=== PATIENT | female | born 1975 | race Caucasian/White ===

== ENCOUNTER 2022-04-30 19:14 | Outpatient (REF) | payer OTHER, SELFPAY ==
--- NOTE | 2022-04-30 13:15 | PAPFT_PTH ---
PATIENT: Indy Gilliam LOC: [facility] U#:[id number] AGE/SX: 46/F ROOM: RE04/30/[address]: DAWNA Castorena : 1975 BED: DIS: 04/30/2022 SPEC #: [id number] RECD: 05/01/22 12:48 STATUS: MIRTHA REYanni #: [id number] KIRA: 04/30/22 13:[address]: Rebeka Pineda DEPT: [facility] Cytology RECD BY: Vandana Little Tissues: 1 - CX/ENDOCX FOR PAP SMEARS Procedures: PAP THIN PREP/UVM Screening HPV DNA PROBE Comments: [id number]
== END 2022-04-30 19:15 | disposition home or self-care (01) ==
LOC: LBN 19:14
PROVIDERS: PCP Nurse Practitioner Family; Visit Provider Nurse Practitioner Family
DX: Z12.4 Encounter for screening for malignant neoplasm of cervix (principal); Z11.51 Encounter for screening for human papillomavirus (HPV)
CPT/HCPCS: 88142; 87624

== ENCOUNTER 2023-05-31 18:34 | Outpatient (REF) | payer OTHER, SELFPAY ==
--- NOTE | 2023-05-31 14:00 | PAPFT_PTH ---
PATIENT: Indy Gilliam LOC: [facility] U#:[id number] AGE/SX: 48/F ROOM: RE05/31/[address]: DAWNA Castorena : 1975 BED: DIS: 05/31/2023 SPEC #: [id number] RECD: 06/01/23 12:54 STATUS: MIRTHA REYanni #: [id number] KIRA: 05/31/23 14:[address]: Rebeka Pineda DEPT: [facility] Cytology RECD BY: Vandana Little Tissues: 1 - CX/ENDOCX FOR PAP SMEARS Procedures: PAP THIN PREP/UVM Screening HPV DNA PROBE Comments: [id number] (CHLAMYDIA/GC)
[2023-06-02 15:34] LABS: Chlamydia Result Negative (Negative); GC Result Negative (Negative)
== END 2023-05-31 18:35 | disposition home or self-care (01) ==
LOC: LBN 18:34
PROVIDERS: PCP Nurse Practitioner Family; Visit Provider Nurse Practitioner Family
DX: Z12.4 Encounter for screening for malignant neoplasm of cervix (principal); Z72.51 High risk heterosexual behavior
CPT/HCPCS: 87491; 87591; 88142; 87624

== ENCOUNTER → 2023-06-21 01:19 | Outpatient (CLI) | payer OTHER, SELFPAY ==
--- NOTE | 2023-06-21 07:45 | DI.US_ITS ---
Exam(s) US BREAST RT LIMITED MG MAMMO DIAGNOSTIC BI EXAM: MAMMO DIAGNOSTIC BI and U/S breast RT limited CLINICAL HISTORY: right breast lump, upper outer quadrant,diagnostic,n63.10. TECHNIQUE: Craniocaudal and mediolateral oblique Full Field Digital Mammography views with Computer Aided Diagnosis followed by Tomosynthesis and right breast ultrasound. COMPARISON: This is a baseline examination. FINDINGS: Mammography/Tomosynthesis: Masses/Architectural Distortion: None seen. Microcalcifictions: No suspicious pleomorphic-type are seen. Skin Thickening/Nipple Retraction: None. Limited right breast US: Echotexture: Normal appearance of the glandular tissue. Shadowing: No suspicious foci. Cyst: None. Solid lesions: None seen. Ductal dilation: None. IMPRESSION: 1. No evidence of malignancy is noted. 2. Unless there is more urgent need, follow-up screening mammography is recommended, as per [place] [employer] guidelines. 3. The findings were discussed with the patient on the date of the examination. BI-RADS Category 1 - Negative Breast Density - Category C - Heterogeneously dense Breast density Category C or D implies that the patient has dense breast tissue. Dense breast tissue can make it harder to find cancer on a mammogram. Dense breast tissue is also associated with an incr eased risk of breast cancer. This information about the result of the mammogram report was provided to the patient to raise their awareness. Use this report when you speak with the patient about their risks for breast cancer, which includes their family history. At that time, you may recommend additional screening tests (Ultrasoun d or MRI) as these tests may add significant information. A negative radiographic report should not delay biopsy if a dominant or clinically suspicious mass is present. Up to ten percent of cancers are not identified on mammography. A negative report may reinforce clinical impression. Adenosis and dense breasts may obscure an underlying neoplasm. False positive reports average 6 to 10%. Patient will receive a letter notifying them of these results.
== END ==
PROVIDERS: PCP Nurse Practitioner Family; Visit Provider Nurse Practitioner Family
DX: N63.10 Unspecified lump in the right breast, unspecified quadrant (principal); Z12.31 Encounter for screening mammogram for malignant neoplasm of breast
CPT/HCPCS: 76642; 77062; 77066; G0279

== ENCOUNTER 2024-07-07 07:07 | Outpatient (CLI) | payer OTHER, SELFPAY ==
[2024-07-07 07:48] LABS: Abs Immature Grans 0.01 10^3/uL (0.0-0.06); Absolute Basophil Count 0.04 10^3/uL (0.0-0.2); Absolute Lymphocyte Count 2.46 10^3/uL (1.2-3.4); Absolute Neutrophil Count 2.71 10^3/uL (1.2-6.7); Basophils % 0.7 %; Eosinophils % 3.3 %; HCT 42.4 % (36.0-46.0); HGB 14.9 g/dL (11.2-15.7); Immature Grans % 0.2 %; Lymphocytes % 40.9 %; MCH 31.9 pg (27.0-33.0); MCHC 35.1 % (32.0-36.0); MCV 91 fL (80-95); MPV 9.4 fL (8.0-11.0); Neutrophils % 44.9 %; Platelet Count 273 10^3/uL (130-400); RBC 4.67 10^6/uL (3.93-5.22); RDW 11.9 % (11.7-14.6); RDW-SD 39.9 fL; WBC 6.02 10^3/uL (4.4-10.8)
[2024-07-07 07:57] LABS: Hemoglobin A1C 5.4 % (<5.7)
[2024-07-07 08:08] LABS: ALT 23 U/L (14-59); AST 22 U/L (15-37); Albumin 3.9 g/dL (3.4-5.0); Alkaline Phosphatase 53 U/L (46-116); Anion Gap 8.3 mmol/L (3-11); BUN 21 mg/dL (7-18); Bilirubin, Total 0.7 mg/dL (0.2-1.0); CO2 28.7 mmol/L (21.0-32.0); CREATININE 0.9 mg/dL (0.55-1.02); Calcium 9.3 mg/dL (8.5-10.1); Calculated LDL 79 mg/dL (<100); Chloride 104 mmol/L (98-107); Cholesterol 148 mg/dL (<200); Estimated GFR 78.37 (mL/min/1.73m2); Glucose 92 mg/dL (74-106); HDL Cholesterol 57 mg/dL (>or=50); Potassium 4.1 mmol/L (3.5-5.1); Sodium 141 mmol/L (136-145); TSH (W/Ref FT4) 2.85 uIU/mL (0.36-3.74); Total Protein 7.9 g/dL (6.4-8.2); Triglyceride 61 mg/dL (<150)
[2024-07-09 09:45] LABS: HIV-1/2 Ag & Ab Screen Negative (Negative)
[2024-07-10 11:59] LABS: Hepatitis C Ab w Rflx HCV PCR Negative (Negative)
== END 2024-07-07 07:08 | disposition home or self-care (01) ==
PROVIDERS: PCP Nurse Practitioner Family; Visit Provider Nurse Practitioner Family
DX: Z11.59 Encounter for screening for other viral diseases (principal); Z00.00 Encounter for general adult medical examination without abnormal findings; Z11.4 Encounter for screening for human immunodeficiency virus [HIV]
CPT/HCPCS: 36415; 80053; 80061; 86803; 87389; 83036; 84443; 85025

== ENCOUNTER 2024-07-12 12:41 | Outpatient (REF) | payer OTHER, SELFPAY ==
--- NOTE | 2024-07-12 10:15 | PAPFT_PTH ---
PATIENT: Indy Gilliam LOC: [facility] U#:[id number] AGE/SX: 49/F ROOM: RE07/12/[address]: DAWNA Castorena : 1975 BED: DIS: 07/12/2024 SPEC #: [id number] RECD: 07/12/24 13:14 STATUS: MIRTHA REQ #: [id number] KIRA: 07/12/24 10:[address]: Rebeka Pineda DEPT: [facility] Cytology RECD BY: Vandana Little Tissues: 1 - CX/ENDOCX FOR PAP SMEARS Procedures: PAP THIN PREP/UVM Screening HPV DNA PROBE Comments: [id number] (HPV 16 & 18/45) (CHLAMYDIA/GC)
[2024-07-13 11:55] LABS: Chlamydia Result Negative (Negative); GC Result Negative (Negative)
== END 2024-07-12 12:42 | disposition home or self-care (01) ==
LOC: LBN 12:41
PROVIDERS: PCP Nurse Practitioner Family; Visit Provider Nurse Practitioner Family
DX: Z12.4 Encounter for screening for malignant neoplasm of cervix (principal); R87.618 Other abnormal cytological findings on specimens from cervix uteri
CPT/HCPCS: 87491; 87591; 88142; 87624

== ENCOUNTER 2024-08-23 01:55 | Outpatient (CLI) | payer OTHER, SELFPAY ==
--- NOTE | 2024-08-23 07:30 | DI.MAMMO_ITS ---
Exam(s) MAMMO SCREENING EXAM: MAMMO SCREENING CLINICAL HISTORY: screening,z12.39 TECHNIQUE: Bilateral full field digital CC and MLO mammographic images were obtained with 3D tomosyn thesis and utilizing computer aided detection (CAD). COMPARISON: Available for comparison. FINDINGS: Masses/Architectural Distortion: No suspicious masses or areas of architectural distortion are presen t. Microcalcifications: No suspicious pleomorphic-type are seen. Skin Thickening/Nipple Retraction: None. IMPRESSION: 1. No significant interval change with no specific features of malignancy noted. 2. Unless there is more urgent need, screening mammography is recommended, as per [place] [employer] guidelines. BI-RADS Category 1 - Negative Breast Density - Category C - The breast are heterogeneously dense, which may obscure small masses. Breast density Category C or D implies that the patient has dense breast tissue. Dense breast tissue can make it harder to find cancer on a mammogram. Dense breast tissue is also associated with an incr eased risk of breast cancer. This information about the result of the mammogram report was provided to the patient to raise their awareness. Use this report when you speak with the patient about their risks for breast cancer, which includes their family history. At that time, you may recommend additional screening tests (Ultrasoun d or MRI) as these tests may add significant information. A negative radiographic report should not delay biopsy if a dominant or clinically suspicious mass is present. Up to ten percent of cancers are not identified on mammography. A negative report may reinforce clinical impression. Adenosis and dense breasts may obscure an underlying neoplasm. False positive reports average 6 to 10%. Patient will receive a letter notifying them of these results.
== END 2024-08-23 02:15 ==
LOC: DI 01:55
PROVIDERS: PCP Nurse Practitioner Family; Visit Provider Nurse Practitioner Family
DX: Z12.31 Encounter for screening mammogram for malignant neoplasm of breast (principal); R92.333 Mammographic heterogeneous density, bilateral breasts
CPT/HCPCS: 77063; 77067

== ENCOUNTER 2024-09-19 07:42 | Day surgery (SDC) | payer OTHER, SELFPAY ==
--- NOTE | 2024-09-18 15:19 | PDOC.DSDIS_ITS ---
Date of service: 09/19/24 Discharge Plan Disposition Patient Disposition: Home Condition: Good Discharge Details Reason For Visit: Screening colonoscopy Attending Provider: Ayan Riggs Primary Care Provider: Rebeka Pineda Home Meds and New Rx's Prescriptions: Continued diphenhydramine-acetaminophen [Tylenol PM Extra Strength] 25-500 mg tablet 1 tab PO QHS PRN Tumeric Curcumin PO Magnesium Bisglycinate PO cholecalciferol (vitamin D3) 10,000 unit capsule 10,000 unit PO DAILY albuterol sulfate 90 mcg/actuation HFA aerosol inhaler 2 inh IH Q6H PRN (Reason: shortness of breath or wheezing) Qty: 18 2RF fluticasone propionate 50 mcg/actuation spray,suspension 2 spray NS DAILY PRN (Reason: allergy symptoms) Qty: 47.4 4RF Rx Instructions: 2 sprays into each nostril daily as needed for congestion hydrocortisone-acetic acid 1-2 % drops 4 drp otic (ear) TID PRN (Reason: rash) Qty: 10 0RF Rx Instructions: Saturate cotton wick with 4 drops, insert into both ear canal; add 4 drops q6hrs. Replace q24hrs clobetasol 0.05 % spray,non-aerosol 1 applic topical DAILY PRN (Reason: scalp dermatitis) Qty: 125 1RF Rx Instructions: not to exceed 26 sprays per single application calcium carbonate [Oyster Shell Calcium 500] 500 MG tablet 3 tab PO DAILY melatonin-pyridoxine (vit B6) 1 EACH tablet 2 tab PO HS PRN One Daily Complete 1 EACH tablet 1 ea PO DAILY omega-3 fatty acids-fish oil 300-1,000 mg capsule 1 cap PO DAILY Patient Comments: Critical [place] levonorgestrel-ethinyl estrad [Marlissa (28)] 0.15-0.03 mg tablet 1 tab PO DAILY Qty: 84 3RF Rx Instructions: 1 tab PO daily. No Action vitamin B complex Capsule 1 cap DAILY B12 5,000-100 mcg lozenge SUBLINGUAL Discharge Instructions Instructions: Colon polyps Additional Instructions: Indy, I hope you are comfortable through the procedure and that you make a quick recovery. Your prep was outstanding, and I could see everything fine. I did find, and removed 3 polyps today. These were all quite small, but none of them have any features that are worrisome to the naked eye. These will all be sent to the pathologist for their review. Colon polyps do come in different varieties, we use the nature of the polyp to guide the timing of future colonoscopies. If you need anything, or have any questions at all, please do not hesitate to ask at any point. Otherwise, the office will be in touch once we have the results, which may take a week or 2. 1. If tolerated, consume a soft, low fiber diet for 1-2 days. 2[address] Do not drive, drink alcohol, operate machinery, make critical decisions, or do activities that require coordination or balance for 24 hours. 3. Because air was put into your colon during the procedure, expelling air from your rectum (passing gas or farting) is normal. 4. You may not have a bowel movement for 1-3 days because of the colonoscopy prep. This is normal. 5. Go directly to the emergency room if you notice any of the following: Develop chills (warm to touch), or if you have a thermometer and your temperature is above 101 Difficulty breathing or difficultly swallowing Persistent vomiting Severe abdominal pain, other than gas cramps Severe chest pain Black, tarry stools Any bleeding ? exceeding one tablespoon 6. Call your physician if the site where your intravenous was started becomes red, swollen, painful, and warm to touch. 7. Your physician has reviewed your pre-procedure medications. Please continue to take those medications as previously ordered. You will be given specific information/education regarding any changes to your medications before leaving. Stand Alone Forms: Anesthesia Discharge InstPhong, Yvan Kirkpatrick (DSU) Activity:: Activity as Tolerated Diet:: As Tolerated Discharge Orders Discharge Orders: Discharge Order (Routine); Ordered 09/18/24 Ordered By: Ayan Riggs DS: Diagnosis Discharge Diagnosis (1) Encounter for screening colonoscopy: Status: Acute Asessment and Plan: Follow-up on polypectomy results
--- NOTE | 2024-09-18 15:20 | W.COLOREPORT ---
Date of service: 09/19/24 Time of Service: 10:14 Colonoscopy Report Date of procedure: 09/19/24 Pre-op diagnosis general: Screening colonoscopy Post-op diagnosis procedure note: other (Colon polyps) Procedure: Colonoscopy with polypectomy Surgeon: Ayan Riggs Anesthesia Type: General:No Airway Estimated blood loss (mL): 5 Pathology: other (0.25 cm flat polyp at 25 cm, 0.25 cm flat polyp at 20 cm x 2 (single specimen)) Complications: None Disposition: same day Indications: Frederick is a 49-year-old woman who had a positive Cologuard test. She needs a follow-up screening colonoscopy Prep: Miralax/Dulcolax Procedure Start Time: 09:19 Procedure End Time: 10:07 Retraction Time: 13 Findings: 0.25 cm flat polyp at 25 cm, 0.25 cm flat polyp at 20 cm x 2 (single specimen) Procedure Description: After the induction of anesthesia, and with Indy in left lateral decubitus position, I began by performing an external anorectal exam.? Perineum and skin were normal, as was the anal verge.?? Next, I performed a digital rectal exam.? I did not appreciate any abnormal findings.? Next, I advanced a colonoscope into the rectal vault.? I performed retroflexion.? This appeared normal.? Using insufflation, I then advanced the colonoscope beyond the rectal folds and into the sigmoid colon before advancing towards the cecum.? The quality of the prep was outstanding.? The colon was quite redundant, and required multiple repositioning to advance all the way over to the right side. The scope was noted to be in the cecum by identification of the ileocecal valve and appendiceal orifice.? I then began withdrawing the colonoscope using repeated irrigation as necessary for full evaluation of the colonic mucosa. Around 25 cm from the anal verge was a 0.25 cm flat polyp. Narrowband imaging was used to assist with the analysis here. This was removed with cold forcep polypectomy with minimal bleeding. Similarly, at 20 cm from the anal verge were 2 more polyps. These were also both flat, each of these was less than 0.25 cm. I removed each of these with cold forceps as well. ?Once the scope was withdrawn to the level of the rectum, great care was taken to examine portions of the rectal folds.? Finally, the scope was withdrawn and the patient was brought to the same-day surgery recovery unit as the anesthetic wore off. ?The findings and instructions were shared with the patient prior to discharge. [place] Bowel Prep [place] Bowel Prep Right Colon: 3 Left Colon: 3 Transverse Colon: 3 Total Score: 9
--- NOTE | 2024-09-18 18:46 | W.ANESPRE ---
General Info Height: 5 ft 4.5 in Weight: 73.482 kg Body Mass Index (BMI): 27.3 Surgical Procedure: Operation Date: 09/19/24 09:05 Proposed Procedure Side Surgeon jacob Riggs MD Meds Allergies and Home Medications Allergies Allergy/AdvReac Type Severity Reaction Status Date / Time Beef Containing Products Allergy Intermediate intolerance Verified 09/19/24 08:06 /diarrhea gluten Allergy Intermediate diarrhea Verified 09/19/24 08:06 Sulfa (Sulfonamide Allergy Intermediate SWELLING Verified 09/19/24 08:06 Antibiotics) Home Medication ?Medication ?Instructions ?Recorded calcium carbonate (Oyster Shell 3 tab PO DAILY 09/15/12 Calcium 500) melatonin 3 mg-pyridoxine (vitamin 2 tab PO HS PRN 09/15/12 B6) 2 mg tablet multivitamin with minerals (One 1 ea PO DAILY 09/15/12 Daily Complete tablet) Magnesium Bisglycinate PO 01/30/19 Tumeric Curcumin PO 01/30/19 cholecalciferol (vitamin D3) 250 10,000 unit PO DAILY 01/30/19 mcg (10,000 unit) capsule diphenhydramine 25 1 tab PO QHS PRN 01/30/19 mg-acetaminophen 500 mg tablet (Tylenol PM Extra Strength) omega-3 fatty acids-fish oil 300 1 cap PO DAILY 01/30/19 mg-1,000 mg capsule clobetasol 0.05 % topical spray 1 applic topical DAILY PRN scalp 04/30/22 dermatitis #125 mL Marlissa (28) 0.15 mg-0.03 mg 1 tab PO DAILY #84 tabs 02/07/24 tablet (levonorgestrel-ethinyl estrad) albuterol sulfate 90 mcg/actuation 2 inh inhalation Q6H PRN shortness 07/12/24 aerosol inhaler of breath or wheezing #18 grams fluticasone propionate 50 2 spray NS DAILY PRN allergy 07/12/24 mcg/actuation nasal symptoms #47.4 mL spray,suspension hydrocortisone-acetic acid 1 %-2 % 4 drp otic (ear) TID PRN rash #10 07/12/24 ear drops mL cyanocobalamin (B12)-cobamamide rolf sublingual 09/19/24 5,000 mcg-100 mcg sublingual lozenge (B12) vitamin B complex 1 cap DAILY 09/19/24 Current Visit Medications: Current Medications Generic Name Dose Route Start Last Admin Trade Name Freq PRN Reason Stop Dose Admin Ringer's Solution 1,000 mls @ 80 mls/hr 09/19/24 06:00 IV 09/19/24 23:59 INFUSION ERIN IV Miscellaneous Supplies 1 each 09/19/24 06:00 Iv Access IV 09/19/24 23:59 DIRECTED ERIN Ondansetron HCl 4 mg 09/18/24 15:21 Ondansetron 4 Mg/2 Ml Vial IVP 10/18/24 15:20 Q4H PRN PRN Nausea / Vomiting Sodium Chloride 0 ml 09/19/24 06:00 Normal Saline Flush 10 Ml Syr IV 09/19/24 23:59 PRN PRN Sodium Chloride 0 ml 09/19/24 06:00 Normal Saline 10 Ml Vial IJ 09/19/24 23:59 DIRECTED PRN Sterile Water 0 ml 09/19/24 06:00 Water,Injection,Sterile 10 Ml Vial IJ 09/19/24 23:59 DIRECTED PRN PFSH Active Problems Active Problems: Problem Status Onset Code Encounter for screening colonoscopy Acute Z12.11 Positive colorectal cancer screening using Cologuard test Acute R19.5 Hearing loss Chronic H91.90 Allergic rhinitis Chronic J30.9 Oral contraceptive pill surveillance Chronic Z30.41 Surgical History Surgical History S/P left knee arthroscopy (09/30/16) Loose osteochondral body excision, lateral patellofemoral retinacular release, chrondroplasty patellofemoral joint, lysis of adhesions in suprapatellar pouch, contralateral meniscectomy. [facility] History of removal of cyst (~1996) Benign cyst removed from neck Tobacco Smoking/Tobacco Use Status: Never Passive smoking exposure: No Alcohol Alcohol Intake: never Substance Use Substance use: Never Substance use type: does not use Prental History History 3 Para 3 Hx # Term Pregnancies Multiple births Hx # Pregnancies Ectopic pregnancies AB induced Hx Number of Living Children 3 AB spontaneous Vital Signs and Lab Results Vital Signs Most Recent Vital Signs in EMR: Temp Pulse Resp BP Pulse Ox 36.2 C L 79 16 127/86 100 09/19/24 07:50 09/19/24 07:50 09/19/24 07:50 09/19/24 07:50 09/19/24 07:50 Lab Results Blood Type / Crossmatch: No Data to Display Complete Blood Count: No Data to Display Complete Metabolic Panel: No Data to Display Liver Function Panel: No Data to Display Coagulation Panel: No Data to Display Cardiac Panel: No Data to Display Arterial Blood Gas: No Data to Display Venous Blood Gas: No Data to Display Pancreas Panel: No Data to Display Thyroid Panel: No Data to Display Infectious Disease: No Data to Display Blood Cultures: No Data to Display Toxicology Panel: No Data to Display Panel: No Data to Display Anesthesia Assessment and Plan Anesthesia History Personal History: No History of Anesthesia Complications Family History: Other Exercise Tolerance Exercise Tolerance: Metabolic Equivalents>4 Cardiac & Pulmonary Exam Cardiac Exam: Normal S1/S2 Heart Sounds Pulmonary Exam: Clear Bilateral Breath Sounds Implantable Cardiac Device Does patient have a Pacemaker or an ICD?: No Anesthesia Plan Resuscitation Status: Full Code Anesthesia Technique: General Anesthesia Airway Planned: Natural Airway Monitors Used: Standard Monitors Preoperative Comments:: 49 yo female with allergy to beef containing products for colo. Positive colo guard. Sig PMHx: no major.
[2024-09-19 07:50] VITALS: BP 127/86; PULSE 79; RESP 16; TEMP 36.2; O2SAT 100
[2024-09-19] MEDS: Lactated Ringers 1,000 ML 80 ML IV (08:55)
--- NOTE | 2024-09-19 09:01 | W.ANESPRE ---
General Info Date of Service Date Performed: 09/19/24 Height: 5 ft 4.5 in Weight: 73.3 kg Body Mass Index (BMI): 27.3 Surgical Procedure: Operation Date: 09/19/24 09:05 Proposed Procedure Side Surgeon jacob Riggs MD Meds Allergies and Home Medications Allergies Allergy/AdvReac Type Severity Reaction Status Date / Time Beef Containing Products Allergy Intermediate intolerance Verified 09/19/24 08:06 /diarrhea gluten Allergy Intermediate diarrhea Verified 09/19/24 08:06 Sulfa (Sulfonamide Allergy Intermediate SWELLING Verified 09/19/24 08:06 Antibiotics) Home Medication ?Medication ?Instructions ?Recorded calcium carbonate (Oyster Shell 3 tab PO DAILY 09/15/12 Calcium 500) melatonin 3 mg-pyridoxine (vitamin 2 tab PO HS PRN 09/15/12 B6) 2 mg tablet multivitamin with minerals (One 1 ea PO DAILY 09/15/12 Daily Complete tablet) Magnesium Bisglycinate PO 01/30/19 Tumeric Curcumin PO 01/30/19 cholecalciferol (vitamin D3) 250 10,000 unit PO DAILY 01/30/19 mcg (10,000 unit) capsule diphenhydramine 25 1 tab PO QHS PRN 01/30/19 mg-acetaminophen 500 mg tablet (Tylenol PM Extra Strength) omega-3 fatty acids-fish oil 300 1 cap PO DAILY 01/30/19 mg-1,000 mg capsule clobetasol 0.05 % topical spray 1 applic topical DAILY PRN scalp 04/30/22 dermatitis #125 mL Marlissa (28) 0.15 mg-0.03 mg 1 tab PO DAILY #84 tabs 02/07/24 tablet (levonorgestrel-ethinyl estrad) albuterol sulfate 90 mcg/actuation 2 inh inhalation Q6H PRN shortness 07/12/24 aerosol inhaler of breath or wheezing #18 grams fluticasone propionate 50 2 spray NS DAILY PRN allergy 07/12/24 mcg/actuation nasal symptoms #47.4 mL spray,suspension hydrocortisone-acetic acid 1 %-2 % 4 drp otic (ear) TID PRN rash #10 07/12/24 ear drops mL cyanocobalamin (B12)-cobamamide rolf sublingual 09/19/24 5,000 mcg-100 mcg sublingual lozenge (B12) vitamin B complex 1 cap DAILY 09/19/24 Current Visit Medications: Current Medications Generic Name Dose Route Start Last Admin Trade Name Freq PRN Reason Stop Dose Admin Ringer's Solution 1,000 mls @ 80 mls/hr 09/19/24 06:00 09/19/24 08:55 IV 09/19/24 23:59 80 mls/hr INFUSION ERIN Administration IV Miscellaneous Supplies 1 each 09/19/24 06:00 Iv Access IV 09/19/24 23:59 DIRECTED ERIN Ondansetron HCl 4 mg 09/18/24 15:21 Ondansetron 4 Mg/2 Ml Vial IVP 10/18/24 15:20 Q4H PRN PRN Nausea / Vomiting Sodium Chloride 0 ml 09/19/24 06:00 Normal Saline Flush 10 Ml Syr IV 09/19/24 23:59 PRN PRN Sodium Chloride 0 ml 09/19/24 06:00 Normal Saline 10 Ml Vial IJ 09/19/24 23:59 DIRECTED PRN Sterile Water 0 ml 09/19/24 06:00 Water,Injection,Sterile 10 Ml Vial IJ 09/19/24 23:59 DIRECTED PRN PFSH Active Problems Active Problems: Problem Status Onset Code Encounter for screening colonoscopy Acute Z12.11 Positive colorectal cancer screening using Cologuard test Acute R19.5 Hearing loss Chronic H91.90 Allergic rhinitis Chronic J30.9 Oral contraceptive pill surveillance Chronic Z30.41 Surgical History Surgical History S/P left knee arthroscopy (09/30/16) Loose osteochondral body excision, lateral patellofemoral retinacular release, chrondroplasty patellofemoral joint, lysis of adhesions in suprapatellar pouch, contralateral meniscectomy. [facility] History of removal of cyst (~1996) Benign cyst removed from neck Tobacco Smoking/Tobacco Use Status: Never Passive smoking exposure: No Alcohol Alcohol Intake: never Substance Use Substance use: Never Substance use type: does not use Prental History History 3 Para 3 Hx # Term Pregnancies Multiple births Hx # Pregnancies Ectopic pregnancies AB induced Hx Number of Living Children 3 AB spontaneous Vital Signs and Lab Results Vital Signs Most Recent Vital Signs in EMR: Most Recent Vital Signs Temp Pulse Resp BP Pulse Ox 36.2 C L 79 16 127/86 100 09/19/24 07:50 09/19/24 07:50 09/19/24 07:50 09/19/24 07:50 09/19/24 07:50 Point of Care Results Point of Care Results: POC- Test(urine) Negative 09/19/24 08:00 Lab Results Blood Type / Crossmatch: No Data to Display Complete Blood Count: No Data to Display Complete Metabolic Panel: No Data to Display Liver Function Panel: No Data to Display Coagulation Panel: No Data to Display Cardiac Panel: No Data to Display Arterial Blood Gas: No Data to Display Venous Blood Gas: No Data to Display Pancreas Panel: No Data to Display Thyroid Panel: No Data to Display Infectious Disease: No Data to Display Blood Cultures: No Data to Display Toxicology Panel: No Data to Display Panel: No Data to Display Anesthesia Assessment and Plan Anesthesia History Personal History: No History of Anesthesia Complications Family History: Other Exercise Tolerance Exercise Tolerance: Metabolic Equivalents>4 Pertinent Negatives Pertinent Negatives: No Symptoms of GERD, No Major Cardiovascular Symptoms or Complaints and No Major Pulmonary Symptoms or Complaints Cardiac & Pulmonary Exam Cardiac Exam: Normal S1/S2 Heart Sounds Pulmonary Exam: Clear Bilateral Breath Sounds Implantable Cardiac Device Does patient have a Pacemaker or an ICD?: No Airway Exam Known Difficult Airway: No Mallampati Class: 1 Mouth Opening: Normal (> 3cm) Thyromental Distance: Greater than 3 cm Neck Range of Motion: Full ROM Neck Circumference: Normal Teeth Condition: Normal Dentition ASA Classification ASA Score: ASA 2 Emergency Case?: No NPO Status NPO Status: NPO Clears >2 hours, Solids >8 hours Status Status: Negative HCG Anesthesia Plan Resuscitation Status: Full Code Anesthesia Technique: General Anesthesia Airway Planned: Natural Airway Monitors Used: Standard Monitors Preoperative Comments:: Denies Alpha-Gal Syndrome and has received propofol without issue in the past. No active GERD symptoms.
[2024-09-19 09:03] VITALS: BMI 27.3
--- NOTE | 2024-09-19 10:05 | BOWEL_PTH ---
PATIENT: Indy Gilliam LOC: [facility] U#:[id number] AGE/SX: 49/F ROOM: RE09/19/[address]: Ayan Riggs MD : 1975 BED: DIS: 09/19/2024 SPEC #: [id number] RECD: 09/19/24 12:48 STATUS: MIRTHA REQ #: [id number] KIRA: 09/19/24 10:[address]: Ayan Riggs DEPT: Surgical Specimen RECD BY: Vandana Little ENTERED: 09/19/24 12:50 SP TYPE: Bowel OTHR DR: Rebeka Pineda, DAWNA Tissues: 1 - BIOPSY BOWEL 2 - BIOPSY BOWEL Procedures: GROSS AND MICRO LEVEL 4 Comments: [id number]
[2024-09-19 10:13] VITALS: BP 112/80; PULSE 63; RESP 14; TEMP 36.1; O2SAT 100
[2024-09-19 10:42] VITALS: BP 112/75; PULSE 51; RESP 14; TEMP 36.2; O2SAT 100
--- NOTE | 2024-09-19 10:46 | W.ANESPOSTOP ---
Postoperative Evaluation Date, Time and Location Date Performed: 09/19/24 Time Performed: 10:40 Patient Location: Day Surgery Unit Vital Signs Most Recent Imported Vital Signs: Most Recent Vital Signs Temp Pulse Resp BP Pulse Ox 36.2 C L 51 L 14 112/75 100 09/19/24 10:42 09/19/24 10:42 09/19/24 10:42 09/19/24 10:42 09/19/24 10:42 Pain Score Most Recent Pain Score: Most Recent Pain Score Pain Level 0 09/19/24 10:13 Assessment Mental Status: Awake (Alert & Oriented to Patient Baseline) Airway and Respiratory Function: Patent airway with normal (patient baseline) respiratory exam Cardiovascular Function: Hemodynamically Stable Hydration Status: Adequately Hydrated Nausea & Vomiting: No Nausea or Vomiting Pain: Pt. Denies Any Pain Peripheral Nerve Block: Patient did not receive a nerve block
== END 2024-09-19 10:52 | disposition home or self-care (01) ==
LOC: SUR 07:43
PROVIDERS: PCP Nurse Practitioner Family; Visit Provider Surgery
PROC: 0DJD8ZZ Inspection of Lower Intestinal Tract, Via Natural or Artificial Opening Endoscopic (ICD-10-PCS; CPT 45378; principal; 2024-09-19 09:00)
DX: Z12.11 Encounter for screening for malignant neoplasm of colon (principal)
CPT/HCPCS: 45380; 81025; 88305; J1596; J2704